=== PATIENT | female | born 1935 | race Caucasian/White ===

== ENCOUNTER 2024-09-29 21:15 | Emergency (ER) | payer MEDICARE, OTHER, SELFPAY ==
[2024-09-29 21:18] VITALS: BP 167/88; PULSE 94; RESP 16; TEMP 36.6; O2SAT 96; BMI 34.7
--- NOTE | 2024-09-29 22:30 | CT_ITS ---
EXAM: BRAIN/HEAD WITHOUT CONTRAST CLINICAL HISTORY: TRAUMA FINDINGS: CT images of the brain were acquired without intravenous contrast. Multiplanar reformats were acquired. COMPARISON: None available. FINDINGS: * ACUTE: No acute infarct or hemorrhage. No mass effect or herniation. * BRAIN PARENCHYMA: [place] supratentorial hypodensity, nonspecific, but likely secondary to chronic microvascular ischemia. Moderate generalized volume loss with concordant ventriculomegaly. * VENTRICLES/EXTRA-AXIAL SPACES: No hydrocephalus or extra-axial fluid collections. * EXTRACRANIAL STRUCTURES: Visualized osseous structures are normal. Soft tissues are normal. CT/Brain/Head without Contrast IMPRESSION: No acute intracranial findings. Chronic microvascular ischemia and involutional changes. Reading Location: [facility]
--- NOTE | 2024-09-29 22:30 | CT_ITS ---
PROCEDURE: CT images of the cervical spine were acquired without intravenous contrast. Multiplanar reformats were acquired. COMPARISON: None available. FINDINGS: * Anatomy: Straightening of the cervical lordosis. Atlantoaxial interval is maintained. Vertebral body heights are within normal limits. Multilevel loss of disc space throughout the cervical spine. * Canal: The visualized cervical spinal cord is within normal limits. * Spinal column: Vertebral body height and alignment are normal. No acute fracture or dislocation. C1-C2: The dens is intact, the lateral masses of C1 are normally aligned, and the atlantodental interval is normal. Multilevel degenerative changes most prominent at C4-C5 and C5-C6 with up to mild canal stenosis and moderate neural foraminal narrowing. * Soft Tissues: No prevertebral soft tissue swelling. Visualized neck soft tissues are normal. Visualized lung apices are normal. CT/Spine Cervical without Contras IMPRESSION: No significant cervical spine pathology. Degenerative changes most prominent at C4-C5 and C5-C6. Reading Location: [facility]
--- NOTE | 2024-09-29 22:30 | EKG12_ITS ---
Test Reason : DYSRHYTHMIA Blood Pressure : */* mmHG Vent. Rate : 94 BPM Atrial Rate : 94 BPM P-R Int : 248 ms QRS Dur : 98 ms QT Int : 378 ms P-R-T Axes : 43 -28 70 degrees QTcB Int : 472 ms Sinus rhythm with 1st degree A-V block Minimal voltage criteria for LVH, may be normal variant ( Jabari product ) Borderline ECG Confirmed by FERMIN YING MD ([id number]), film editor [address] ([id number]) on 09/30/2024 8:21:35 AM Referred By: Confirmed By: FERMIN YING MD
--- NOTE | 2024-09-29 22:31 | EDS_ITS ---
HPI HPI - Fall History of Present Illness Chief Complaint: Fall Narrative Narrative: 89-year-old female presents via EMS status post fall approximately 2 to 3 hours ago. She states she went to the bathroom, got up to wash her hands, and ended up falling. She was unable to get up for about 2 hours. She was pounding with her cane. Her daughter lives at home with her but lives on the other side of the house. She had gotten up and gone to the other side of the house, and heard the pounding that her mother was making. She denies any prodromal symptoms, no chest pain or shortness of breath, no lightheadedness or dizziness. She states she ended up on the floor. Her daughter found her on her back. She was unable to get up for a while. No recent fevers or chills, no cough or shortness of breath. No other symptoms. She denies other injuries but daughter noted bumps on her head. Mainly on the front. She does not take blood thinners. She is unsure as to whether she had any loss of consciousness. [facility] Medical History HTN (hypertension) Home Medications ?Medication ?Instructions ?Recorded ?Last Taken ?Type hydrochlorothiazide 12.5 mg tablet 12.5 mg PO DAILY Unknown History potassium chloride 20 mEq 20 meq PO BID 09/29/24 Unkno wn History tablet,extended release(part/cryst) (Klor-Con M) sertraline 50 mg tablet 75 mg PO DAILY 09/29/24 Unkn own History Allergy/AdvReac Type Severity Reaction Status Date / Time corn ([place]) Allergy Unknown Verified 09/29/24 21:23 Penicillins Allergy Unknown Verified 09/29/24 21:23 Social History Smoking Status: Never smoker ROS ROS ED ROS Narrative Constitutional: No fever, no chills. HEENT: No sore throat. No neck pain. No loss of vision. No rhinorrhea. Cardiovascular: No chest pain. No palpitations. No pedal edema. Respiratory: No cough, no shortness of breath. Abdominal: No abdominal pain. No nausea. No vomiting. Genitourinary: No dysuria. No hematuria. Musculoskeletal: No myalgias. No arthralgias. Neurologic: No headaches. No dizziness. No lightheadedness. Skin: No rash. No change in color. Psychiatric: No depression. No anxiety. EXAM Physical Exam Narrative Exam Narrative: GCS 15. ABCs intact. Anterior skull on the forehead shows mild soft tissue swelling, but no crepitance. PERRL, EOMI. Neck is soft and supple without vertebral point tenderness or bony step-off. Cardiovascular examination regular rate and rhythm. Lungs are clear to auscultation bilaterally. Abdomen is soft and nontender with positive bowel sounds. No guarding or rebound. Neurological examination is nonfocal and nonlateralizing. Musculoskeletal examination shows pelvis stable. No hip pain. Able to flex and extend at hip and knee although range of motion is mildly limited secondary to weakness. Const Vital Signs: 09/29/24 21:18 09/29/24 21:24 09/29/24 23:09 Temperature 98 F Temperature Source Oral Pulse Rate 94 92 Respiratory Rate 16 Respiratory Effort Normal Non-Labored Respiratory Depth Normal Respiratory Pattern Normal Blood Pressure 167/88 H 117/81 H Blood Pressure Mean 114 93 Pulse Ox 96 94 Oxygen Delivery Method Room Air Room Air Room Air MDM MDM MDM Narrative Medical decision making narrative: Differential diagnosis includes but not limited to closed head injury versus intracranial hemorrhage. Does not sound like she had a syncopal episode. However, comprehensive workup will be pursued. EKG was obtained and interpreted by myself independently as normal sinus rhythm with first-degree AV block at [address] changes. No STEMI. QTc 472 ms. I reviewed her laboratory work and she has a leukocytosis of 15.7 which I think is nonspecific, hemoglobin slightly hemoconcentrated at 15.5, platelet count normal at 268. Electrolyte panel is significant for chloride low at 97 which I think is negligible and nonspecific, BUN of 17 and creatinine low at 0.55. She does supplement with potassium and is normal at 3.3. Glucose appropriately elevated at 128 with a normal anion gap of 13. Urinalysis shows no evidence of ketones, no infection with 0-5 WBCs. I do not feel antibiotics are indicated. CK is below 100 so I do not feel that she has rhabdomyolysis and needs IV fluids or admission. I reviewed the radiology report of the CT of the brain and the CT of the C- spine. There is no acute hemorrhage intracranially, no skull fracture. CT of the cervical spine shows no evidence of fracture but there is degenerative joint disease. Upon repeat examination, she is resting comfortably. I discussed with her the possibility of observation or admission for PT OT eval and placement in rehab, but she declines. She will be ambulated and will be discharged to take over the counter medications as needed and follow-up with her primary care provider. Daughter is agreeable to the plan as well. Disposition is discharged home in stable condition. History & Record Review Discussion w/independent historian: Patient Lab Data Attestation: I reviewed the patient's lab results. Labs: Laboratory Results - last 24 hr 09/29/24 09/29/24 22:35 23:35 WBC 15.7 H RBC 4.81 Hgb 15.5 H Hct 44.5 MCV 92.5 MCH 32.2 H MCHC 34.8 RDW Std Deviation 42.5 RDW Coeff of [place] 12.5 Plt Count 268 MPV 9.5 Immature Gran % (Auto) 0.400 Neut % (Auto) 91.5 H Lymph % (Auto) 4.1 L [place] % (Auto) 3.8 Eos % (Auto) 0.1 Baso % (Auto) 0.1 Absolute Neuts (auto) 14.4 H Absolute Lymphs (auto) 0.64 L Nucleated RBC % 0 Sodium 135 Potassium 3.3 Chloride 97 L Carbon Dioxide 24.9 Anion Gap 13 BUN 17 Creatinine 0.55 L Estim Creat Clear Calc 52.28 Est GFR (MDRD) Non-Af 87 BUN/Creatinine Ratio 30.4 H Glucose 128 H Calcium 9.9 Total Creatine Kinase 98 Urine Color Yellow Urine Clarity Clear Urine pH 6.0 Ur Specific [place] 1.020 Urine Protein 30 H Urine Glucose (UA) Normal Urine Ketones Negative Urine Occult Blood 50 H Urine Nitrite Negative Urine Bilirubin Negative Urine Urobilinogen Normal Ur Leukocyte Esterase Negative Urine RBC 0-5 SEEN Urine WBC 0-5 SEEN Ur Squamous Epith Cells 0-5 SEEN Amorphous Sediment 1+ Urine Bacteria 1+ Urine Mucus 0 SEEN Radiography Diagnostic Testing: Clinical Impression(s) from Imaging Studies Brain CT 09/29/24 22:30 IMPRESSION: No acute intracranial findings. Chronic microvascular ischemia and involutional changes. Reading Location: [facility] Cervical Spine CT 09/29/24 22:30 IMPRESSION: No significant cervical spine pathology. Degenerative changes most prominent at C4-C5 and C5-C6. Reading Location: [facility] Discharge Plan Triage Chief Complaint: Fall ED Provider: Shaka Shi Dx/Rx/DC Orders Clinical Impression: Fall, Closed head injury, Forehead abrasion Instructions: ED Abrasion, ED Fall with Uncertain Cause, ED Head Injury (Adult) Prescriptions: No Action potassium chloride [Klor-Con M20] 20 mEq tablet,ER particles/crystals 20 meq PO BID sertraline 50 mg tablet 75 mg PO DAILY hydrochlorothiazide 12.5 mg tablet 12.5 mg PO DAILY Primary Care Provider: Dorinda Tobias NP Referrals: Ca Smith MD [Med Staff - [employer]] - 3-5 Days if not improving Activity Restrictions/Additional Instructions: [id number] medications as needed. Return with new or worsening symptoms, inability to ambulate. Print Language: Sinhala Disposition Disposition: Home, Self Care
[2024-09-29 22:57] LABS: Absolute Lymphocyte Count 0.64 X10^3/uL (0.83-4.51); Absolute Neutrophil Count 14.4 X10^3/uL (2.0-7.7); Basophil# 0.02 X10^3/uL; Basophil% 0.1 % (0-1); Eosinophil# 0.01 X10^3/uL; Eosinophils% 0.1 % (0-5); Hematocrit 44.5 % (37-47); Hemoglobin 15.5 g/dL (12.0-15.0); Lymphocyte # 0.64 X10^3/ul (0.83-4.51); Lymphocyte % 4.1 % (19-41); Mean Corp Hgb Conc 34.8 g/dL (32-36); Mean Corpuscular Hgb 32.2 pg (27.0-32.0); Mean Corpuscular Volume 92.5 fL (81-99); Mean Platelet Vol. 9.5 fl (6.2-12.0); Monocyte# 0.59 X10^3/uL; Monocyte% 3.8 % (0-10); NRBC Flagged by Analyzer 0 % (0-5); Neutrophil # 14.36 X10^3/uL (2.7-7.7); Neutrophil % 91.5 % (47-70); Platelet Count 268 K/mm3 (150-450); RBC Distribution Width CV 12.5 % (11.6-14.6); RBC Distribution Width SD 42.5 fl (35.1-43.9); Red Blood Count 4.81 M/mm3 (4.2-5.4); White Blood Count 15.7 K/mm3 (4.4-11.0)
[2024-09-29 23:09] VITALS: BP 117/81; PULSE 92; O2SAT 94
[2024-09-29 23:14] LABS: Anion Gap 13 (5-15); BUN 17 mg/dL (4-19); BUN/Creat Ratio 30.4 RATIO (10-20); Calcium,Total 9.9 mg/dL (7.6-11.0); Carbon Dioxide 24.9 mmol/L (21.0-32.0); Chloride 97 mmol/L (98-108); Creatinine, Serum 0.55 mg/dL (0.70-1.20); EST Glomerular Filtration Rate 87 (>60); Estimated Creatinine Clearance 52.28 ml/min (50-250); Glucose 128 mg/dL (70-99); Potassium 3.3 mmol/L (3.3-5.1); Sodium Level 135 mmol/L (133-145)
[2024-09-29 23:30] LABS: CPK Total, Creatine Kinase 98 U/L (24-195)
[2024-09-29 23:48] LABS: Mucous, Urine 0 SEEN /hpf (<or=2+)
[2024-09-29 23:49] LABS: Color, Urine Yellow (Yellow); Glucose, Dipstick Normal (Normal); Ketone-Dipstick Negative (Negative); Leukocyte Esterase-Dipstick Negative /ul (Negative); Nitrite-Dipstick Negative (Negative); Occult Blood-Urine 50 /ul (Negative); Protein-Dipstick 30 mg/dl (Negative); Urine Bilirubin Dipstick Negative (Negative); Urine Clarity Clear (Clear); Urine Urobilinogen Normal (Normal)
[2024-09-30 00:13] LABS: Amorphous Sediment 1+; Bacteria 1+ /hpf (None Seen); Red Blood Cells-Urine 0-5 SEEN /hpf (0-5); Squamous Epithelial Cells - UA 0-5 SEEN /hpf (5-10); White Blood Cells 0-5 SEEN /hpf (0-5)
[2024-09-30 00:52] VITALS: BP 140/82; PULSE 78; RESP 14; TEMP 36.8; O2SAT 99
== END 2024-09-30 00:52 | disposition home or self-care (01) ==
PROVIDERS: Emergency Provider Emergency Medicine; PCP Nurse Practitioner Family; Visit Provider Emergency Medicine
DX: S00.81XA Abrasion of other part of head, initial encounter (principal); I10 Essential (primary) hypertension; W18.30XA Fall on same level, unspecified, initial encounter; Y92.002 Bathroom of unspecified non-institutional (private) residence as the place of occurrence of the external cause
CPT/HCPCS: 70450; 72125; 80048; 81001; 82550; 85025; 93005; 99285; A4216